=== PATIENT | female | born 1980 ===

== ENCOUNTER 2016-03-31 20:01 | Inpatient (IN) | payer BC ==
[~2016-03-31] VITALS: Ht 165.1 cm; Wt 58.1 kg
[2016-03-31] MEDS ORDERED: PRENATAL PLUS I1 TAB PO (20:13)
[2016-04-03] MEDS ORDERED: IBUPROFEN800 MG PO (09:58)
[2016-04-03] MEDS ORDERED: NORCO 325-5 MG1 TAB PO (09:58)
[2016-04-03] MEDS ORDERED: COLACE100 MG PO (09:59)
[2016-04-03] MEDS ORDERED: FERROUS SULFAT325 M1 PO (09:59)
== END 2016-04-03 11:00 | disposition short-term general hospital (02) | DRG 765 ==
LOC: LDRIP 20:01
PROVIDERS: ADMIT Family Medicine
PROC: 3E0P7GC Introduction of Other Therapeutic Substance into Female Reproductive, Via Natural or Artificial Opening (ICD-10-PCS; 2016-03-31)
PROC: 10D00Z1 Extraction of Products of Conception, Low, Open Approach (ICD-10-PCS; principal; 2016-04-01)
DX: O32.1XX0 Maternal care for breech presentation, not applicable or unspecified (principal); O36.5930 Maternal care for other known or suspected poor fetal growth, third trimester, not applicable or unspecified; O36.0930 Maternal care for other rhesus isoimmunization, third trimester, not applicable or unspecified; O12.04 Gestational edema, complicating childbirth; O99.334 Smoking (tobacco) complicating childbirth; F17.210 Nicotine dependence, cigarettes, uncomplicated; Z3A.39 39 weeks gestation of pregnancy; Z37.0 Single live birth
CPT/HCPCS: A9150; J1580; J1885; J2270; J2405; J2590; J2765; J3010; J3105